=== PATIENT | female | born 1950 | race Hispanic/Latino ===

== ENCOUNTER → 2016-10-21 | Outpatient (CLI) | payer MEDICARE | END | disposition home or self-care (01) | LOC: YCFC.O 07:48 | PROVIDERS: ATTEND Nurse Practitioner Family | DX: E11.9 Type 2 diabetes mellitus without complications (principal); I10 Essential (primary) hypertension; E78.2 Mixed hyperlipidemia; E03.9 Hypothyroidism, unspecified ==

== ENCOUNTER → 2017-03-10 | Outpatient (CLI) | payer MEDICARE ==
--- NOTE | 2017-03-12 09:13 | MAM ---
EXAM DESCRIPTION: 3D Screening BILATERAL CLINICAL HISTORY: 66 yearsFemaleSCREENING. No complaints. Mother with ovarian cancer. Postmenopausal. No HRT. COMPARISON: Digital 2-D bilateral screening study 03/06/2016. Digital 2-D left diagnostic study 12/04/2014.. Report from prior examination also reviewed. TECHNIQUE: Bilateral CC and MLO projection full-field images, 3-D tomosynthesis digital mammographic technique. Also bilateral synthesized CC/ MLO full-field images. CAD not utilized. FINDINGS: The breast parenchymal density pattern is: Almost entirely fatty. Scattered areas of fibroglandular density. Heterogeneously dense breast tissue, which may obscure small masses. Extremely dense breast tissue, which lowers the sensitivity of mammography. No skin thickening or nipple retraction Bilateral regions of architectural distortion in the upper outer quadrants of the posterior thirds of the breasts. Stable since the prior study. Bilateral solitary microcalcifications. No focal, stellate mass or density, focal asymmetry , and no suspicious microcalcifications bilaterally. Stable mammograms compared to prior study, taking into account differences in mammographic technique IMPRESSION: BI-RADS CATEGORY: 2 - BENIGN FINDINGS. FOLLOW UP: Routine digital bilateral screening, one year interval from March 2017. Written communication explaining the findings and follow-up, will be mailed to the patient and referring health care provider. According to the [employer], yearly mammograms are recommended starting at age 40 and continuing as long as a woman is in good health. Any breast change noted on a breast self-exam should be reported promptly to the patient's healthcare provider. Breast MRI is recommended for women with an approximately 20-25% or greater lifetime risk of breast cancer, including women with a strong family history of breast or ovarian cancer and women who have been treated for Hodgkin's disease. A negative mammographic report should not delay tissue diagnosis in patients with significant clinical history or physical findings. Extremely dense breast tissue limits the sensitivity of digital mammography. Electronically signed by: William Martinez MD 03/12/2017 9:11 AM CDT Workstation: [id number]
== END ==
LOC: MAMMO 13:00
DX: Z12.31 Encounter for screening mammogram for malignant neoplasm of breast (principal)
CPT/HCPCS: G0202; G0279

== ENCOUNTER → 2017-12-11 | Outpatient (CLI) | payer MEDICARE | LOC: YCFC.O 09:17 | PROVIDERS: ATTEND Nurse Practitioner Family | DX: E11.9 Type 2 diabetes mellitus without complications (principal); E78.2 Mixed hyperlipidemia; E03.9 Hypothyroidism, unspecified ==

== ENCOUNTER → 2018-06-18 | Outpatient (CLI) | payer MEDICARE | LOC: LAB.O 10:17 | DX: E11.9 Type 2 diabetes mellitus without complications (principal); E03.9 Hypothyroidism, unspecified; E78.2 Mixed hyperlipidemia ==

== ENCOUNTER → 2019-04-15 | Outpatient (CLI) | payer MEDICARE | LOC: YCFC.O 08:05 | PROVIDERS: ATTEND Nurse Practitioner Family | DX: E78.2 Mixed hyperlipidemia (principal); E11.9 Type 2 diabetes mellitus without complications; E03.9 Hypothyroidism, unspecified ==

== ENCOUNTER → 2019-04-28 | Outpatient (CLI) | payer MEDICARE ==
--- NOTE | 2019-05-02 10:50 | MAM ---
EXAM DESCRIPTION: 3D Screening BILATERAL : Digital Mammography. CLINICAL HISTORY: 69 years Female SCREEN . No complaints. No personal or family history of breast cancer. Menarche age 15. Childbirth. Postmenopausal. No HRT. Lifetime risk of developing breast cancer (Tyrer-Cuzick model)(%): 3.1. COMPARISON: Bilateral screening digital breast tomosynthesis 03/14/2018 and 03/10/2017. TECHNIQUE: Bilateral CC and MLO projection full-field images, digital tomosynthesis mammographic technique. Bilateral digital 2-D full-field MLO images. CAD not available for tomosynthesis or 2-D images. FINDINGS: The breast parenchymal density pattern is: Scattered areas of fibroglandular density. No skin thickening or nipple retraction. Bilateral solitary microcalcifications. Right axillary lymph node. Stable focal asymmetry middle third left breast 12:00 position. No new focal, stellate mass or density, focal asymmetry , and no suspicious microcalcifications bilaterally. Stable mammograms compared to prior study. IMPRESSION: Benign exam. BIRAD CATEGORY: 2 BENIGN FINDINGS. RECOMMENDATIONS: FOLLOW UP: Routine digital bilateral mammographic screening, one year interval from April 2019. Written communication explaining the IMPRESSION and follow-up, will be mailed to the patient and referring health care provider. According to the [employer], yearly mammograms are recommended starting at age 40 and continuing as long as a woman is in good health. Any breast change noted on a breast self-exam should be reported promptly to the patient's healthcare provider. Breast MRI is recommended for women with an approximately 20-25% or greater lifetime risk of breast cancer, including women with a strong family history of breast or ovarian cancer and women who have been treated for Hodgkin's disease. A negative mammographic report should not delay tissue diagnosis in patients with significant clinical history or physical findings. Extremely dense breast tissue limits the sensitivity of digital mammography. Electronically signed by: William Martinez MD 05/02/2019 10:48 AM CDT
== END ==
LOC: MAMMO 14:00
PROVIDERS: ATTEND Nurse Practitioner Family
DX: Z12.31 Encounter for screening mammogram for malignant neoplasm of breast (principal)

== ENCOUNTER → 2019-08-10 | Outpatient (CLI) | payer MEDICARE ==
--- NOTE | 2019-08-11 08:34 | US ---
EXAM DESCRIPTION: Carotid Duplex: ULTRASOUND. CLINICAL HISTORY: 69 years Female CAROTID BRUIT COMPARISON: None. TECHNIQUE: Transcutaneous scanning utilizing infante-scale and Doppler modes to evaluate the bilateral carotid systems and vertebral arteries. Percentage of diameter of stenosis or no stenosis recorded will be based upon NASCET criteria. FINDINGS: Peak systolic/end diastolic (CM-Sec) CCA Right 77/14 Left 71/13. ICA Right proximal 53/16, distal 99/31. Left proximal 55/19, mid 90/24. Vertebral Right 55/14 Left 54/13. ECA (PS Only) Right 77 left 88. ICA/CCA peak systolic ratio: Right 1.3 Left 1.3 ICA/CCA end diastolic ratio: Right 2.2 Left 1.8 Vertebral arteries: antegrade flow. Comments: Minimal echogenic atherosclerotic plaque bilaterally. Bilateral spectral broadening in the mid and distal ICAs. Less than 20% area and diameter stenosis in the distal left CCA bulb. IMPRESSION: 1. Doppler evaluation of the bilateral carotid systems and vertebral arteries shows no hemodynamically significant stenoses. Less than 50% stenosis on the right. 2. No significant amount of plaque seen in the carotid arteries bilaterally. Bilateral vertebral arteries showed antegrade-cephalad flow. Electronically signed by: William Martinez MD 08/11/2019 8:33 AM [employer]
== END ==
LOC: US 15:42
PROVIDERS: ATTEND Family Medicine
DX: R09.89 Other specified symptoms and signs involving the circulatory and respiratory systems (principal); R01.1 Cardiac murmur, unspecified

== ENCOUNTER → 2019-08-14 | Outpatient (CLI) | payer MEDICARE | LOC: ECHO 15:44 | PROVIDERS: ATTEND Family Medicine | DX: I10 Essential (primary) hypertension (principal) ==

== ENCOUNTER → 2019-11-17 | Outpatient (CLI) | payer MEDICARE | LOC: YCFC.O 07:53 | PROVIDERS: ATTEND Family Medicine | DX: E11.9 Type 2 diabetes mellitus without complications (principal); I10 Essential (primary) hypertension; E78.5 Hyperlipidemia, unspecified; E03.9 Hypothyroidism, unspecified ==

== ENCOUNTER → 2020-02-17 | Outpatient (CLI) | payer MEDICARE | LOC: YCFC.O 07:39 | PROVIDERS: ATTEND Family Medicine | DX: E11.9 Type 2 diabetes mellitus without complications (principal) ==